=== PATIENT | female | born 1940 | race Caucasian/White ===

== ENCOUNTER 2016-08-30 09:30 | Outpatient (RCR) | payer MEDICARE, BC ==
[~2016-08-30 09:30] MED LIST: ATORVASTATIN CA20 MG PO; LEVOTHYROXINE0.05 MG PO; LISINOPRIL40 MG PO; PRILOSEC 20MG20 MG
== END 2016-11-28 | disposition home or self-care (01) ==
LOC: CARDREHAB 09:30
DX: Z48.812 Encounter for surgical aftercare following surgery on the circulatory system (principal); Z95.5 Presence of coronary angioplasty implant and graft

== ENCOUNTER 2016-11-29 13:39 | Outpatient (RCR) | payer MEDICARE, BC ==
[2016-08-09 01:19] VITALS: BP 151/73
== END 2017-02-27 | disposition home or self-care (01) ==
LOC: CARDREHAB
DX: Z48.812 Encounter for surgical aftercare following surgery on the circulatory system (principal); Z95.5 Presence of coronary angioplasty implant and graft

== ENCOUNTER → 2017-01-08 | Day surgery (SDC) | payer MEDICARE, BC ==
[2016-08-09 01:19] VITALS: BP 151/73
== END ==
LOC: MSO 09:00
DX: K29.70 Gastritis, unspecified, without bleeding (principal); K21.9 Gastro-esophageal reflux disease without esophagitis; I10 Essential (primary) hypertension; F17.210 Nicotine dependence, cigarettes, uncomplicated
CPT/HCPCS: 00740; A4649; J7120

== ENCOUNTER 2017-02-28 08:00 | Outpatient (RCR) | payer MEDICARE, BC ==
[2016-08-09 01:19] VITALS: BP 151/73
== END 2017-03-28 08:00 | disposition home or self-care (01) ==
LOC: CARDREHAB 08:00
DX: Z48.812 Encounter for surgical aftercare following surgery on the circulatory system (principal); Z95.5 Presence of coronary angioplasty implant and graft

== ENCOUNTER → 2017-09-05 | Outpatient (CLI) | payer MEDICARE, BC ==
[2016-08-09 01:19] VITALS: BP 151/73
== END ==
LOC: RAD 12:56
DX: Z12.31 Encounter for screening mammogram for malignant neoplasm of breast (principal)
CPT/HCPCS: G0202

== ENCOUNTER → 2018-09-11 | Outpatient (CLI) | payer MEDICARE, BC ==
[2016-08-09 01:19] VITALS: BP 151/73
== END ==
LOC: MAMMO 09:56
DX: Z12.31 Encounter for screening mammogram for malignant neoplasm of breast (principal)

== ENCOUNTER → 2018-09-11 | Outpatient (CLI) | payer MEDICARE, BC ==
[2016-08-09 01:19] VITALS: BP 151/73
== END ==
LOC: RAD 09:55 → MAMMO 10:45
DX: Z13.820 Encounter for screening for osteoporosis (principal); M85.852 Other specified disorders of bone density and structure, left thigh; M85.851 Other specified disorders of bone density and structure, right thigh; Z78.0 Asymptomatic menopausal state

== ENCOUNTER → 2019-10-28 | Outpatient (CLI) | payer MEDICARE, BC ==
[2016-08-09 01:19] VITALS: BP 151/73
== END ==
LOC: MAMMO 10:26
DX: Z12.31 Encounter for screening mammogram for malignant neoplasm of breast (principal)

== ENCOUNTER 2020-09-08 13:00 | Outpatient (RCR) | payer MEDICARE, BC ==
[2016-08-09 01:19] VITALS: BP 151/73
== END 2020-09-13 | disposition home or self-care (01) ==
LOC: PT
DX: M54.16 Radiculopathy, lumbar region (principal)

== ENCOUNTER → 2021-07-14 | Outpatient (CLI) | payer MEDICARE, BC | LOC: MAMMO 08:23 | DX: Z13.820 Encounter for screening for osteoporosis (principal); M85.80 Other specified disorders of bone density and structure, unspecified site; Z78.0 Asymptomatic menopausal state ==

== ENCOUNTER → 2021-07-14 | Outpatient (CLI) | payer MEDICARE, BC | LOC: MAMMO 08:26 | DX: Z12.31 Encounter for screening mammogram for malignant neoplasm of breast (principal) ==

== ENCOUNTER 2021-09-29 09:59 | Outpatient (RCR) | payer MEDICARE, BC | END 2021-10-10 | disposition home or self-care (01) | LOC: PT | DX: M79.651 Pain in right thigh (principal) ==

== ENCOUNTER 2021-10-18 09:30 | Outpatient (RCR) | payer MEDICARE, BC | END 2021-11-07 | disposition home or self-care (01) | LOC: PT | DX: M79.651 Pain in right thigh (principal) ==

== ENCOUNTER 2021-12-28 13:02 | Outpatient (RCR) | payer MEDICARE, BC | END 2022-01-07 | LOC: PT | DX: M25.572 Pain in left ankle and joints of left foot (principal) ==

== ENCOUNTER 2022-01-10 10:04 | Outpatient (RCR) | payer MEDICARE, BC | END 2022-01-19 17:00 | disposition still patient (30) | LOC: PT 10:04 | DX: M25.572 Pain in left ankle and joints of left foot (principal) ==

== ENCOUNTER → 2022-11-08 | Outpatient (CLI) | payer MEDICARE, BC | LOC: MAMMO 13:44 | DX: Z12.31 Encounter for screening mammogram for malignant neoplasm of breast (principal) ==

== ENCOUNTER → 2023-08-28 | Outpatient (CLI) | payer MEDICARE, BC | LOC: RAD 09:23 → MAMMO 09:30 | DX: Z13.820 Encounter for screening for osteoporosis (principal); M85.80 Other specified disorders of bone density and structure, unspecified site ==

== ENCOUNTER 2024-05-14 09:31 | Outpatient (RCR) | payer MEDICARE, BC | END 2024-06-09 | disposition home or self-care (01) | LOC: PT | DX: M54.16 Radiculopathy, lumbar region (principal) ==

== ENCOUNTER → 2024-08-04 | Outpatient (CLI) | payer MEDICARE, BC | LOC: MAMMO 08:59 | DX: Z12.31 Encounter for screening mammogram for malignant neoplasm of breast (principal) ==

== ENCOUNTER → 2024-09-22 | Day surgery (SDC) | payer MEDICARE, BC ==
[~2024-09-22] MED LIST changes: +Lidocaine PF 2% (20 MG/ML) 5 ML VIAL ONE
== END ==
LOC: MSO 08:11
DX: Z12.11 Encounter for screening for malignant neoplasm of colon (principal); Z86.0100 Personal history of colon polyps, unspecified; Z95.5 Presence of coronary angioplasty implant and graft
CPT/HCPCS: G0121; 00812; J2704; J7120